=== PATIENT | male | born 1995 ===

== ENCOUNTER → 2017-12-01 | Outpatient (CLI) | payer OTHER | END | disposition home or self-care (01) | LOC: PPH VACUNA 09:50 | DX: Z23 Encounter for immunization (principal) ==

== ENCOUNTER 2022-06-02 22:53 | Emergency (ER) | payer OTHER ==
[~2022-06-02] VITALS: Ht 182.9 cm; Wt 88.5 kg
[2022-06-03] MEDS ORDERED: PEPCID40 MG PO (02:08)
[2022-06-03] MEDS ORDERED: PROTONIX40 M1 PO (02:08)
== END 2022-06-03 | disposition home or self-care (01) ==
LOC: ER 22:53
DX: R10.13 Epigastric pain (principal); R50.9 Fever, unspecified

== ENCOUNTER 2022-12-25 23:31 | Emergency (ER) | payer OTHER ==
[~2022-12-25] VITALS: Ht 175.3 cm; Wt 45.4 kg
[~2022-12-25 23:31] MED LIST: PEPCID40 MG PO; PROTONIX40 M1 PO
[2022-12-26] MEDS ORDERED: OSEL75CA PO (03:04)
[2022-12-26] MEDS ORDERED: PEPCID40 MG PO (03:04)
== END 2022-12-26 03:13 ==
LOC: ER 23:31
DX: J10.1 Influenza due to other identified influenza virus with other respiratory manifestations (principal); Z20.822 Contact with and (suspected) exposure to COVID-19